=== PATIENT | female | born 1980 | race Caucasian/White ===

== ENCOUNTER 2025-02-25 18:09 | Inpatient (IN) | payer OTHER ==
[~2025-02-25] VITALS: Ht 167.6 cm; Wt 56.9 kg
[2025-02-25] MEDS ORDERED: ACETAMINOPHEN 325 MG TAB PO PRN (22:05)
[2025-02-25] MEDS ORDERED: IBUPROFEN 400 MG TAB PO PRN (22:05)
[2025-02-25] MEDS ORDERED: MAALOX 30 ML SUSP *UDC PO PRN (22:05)
[2025-02-25] MEDS ORDERED: MOM 30 ML SUSPENSION UDC PO PRN (22:05)
[2025-02-25] MEDS ORDERED: traZODone 50 MG TAB PO PRN (22:05)
[2025-02-25 22:27] VITALS: BP 119/72; TEMP 97.1; O2SAT 98
[2025-02-26 06:17] VITALS: BP 100/64; TEMP 97.1; O2SAT 98
[2025-02-26] MEDS ORDERED: SERT25TA21 PO (14:49)
[2025-02-26] MEDS ORDERED: HOME MED LIST COMPLETE! XX SCH (14:50)
[2025-02-26 14:55] VITALS: BP 123/76; TEMP 98.2; O2SAT 99
[2025-02-26] MEDS: buPROPion **XL** 150 MG TABLET PO SCH (15:47)
[2025-02-26] MEDS: risperiDONE 0.5 MG TAB PO ONE (15:48)
[2025-02-26 19:14] LABS: BASO # 0.0 10^3/uL (0.0-0.2); BASO % 0.3 % (0.0-1.0); EOS # 0.1 10^3/uL (0.0-0.5); EOS % 0.5 % (0.0-3.0); LYMPH # 3.4 10^3/uL (1.5-5.0); LYMPH % 29.0 % (24.0-44.0); MONO # 0.9 10^3/uL (0.0-0.8); MONO % 8.1 % (2.0-8.0); NEUTROPHILS # 7.2 10^3/uL (1.5-8.5); NEUTROPHILS % 61.8 % (36.0-66.0); PLATELET COUNT, AUTOMATED 441 10^3/uL (150-450)
[2025-02-26 19:37] LABS: CALCIUM LEVEL 9.0 MG/DL (8.5-10.1); CARBON DIOXIDE LEVEL 28 MMOL/L (20-31); CHLORIDE LEVEL 104 MMOL/L (98-107); CREATININE FOR GFR 0.59 MG/DL (0.55-1.30); GLOMERULAR FILTRATION RATE > 90.0 (>58); POTASSIUM SERUM 4.1 MMOL/L (3.5-5.1); SODIUM LEVEL 138 MMOL/L (136-145)
[2025-02-26] MEDS: risperiDONE 0.5 MG TAB PO SCH (20:04)
[2025-02-26] MEDS: traZODone 50 MG TAB PO SCH (20:04)
[2025-02-27 06:28] VITALS: BP 95/63; TEMP 96.3; O2SAT 99
[2025-02-27 15:21] VITALS: BP 127/73; TEMP 98; O2SAT 98
[2025-02-28 06:29] VITALS: BP 118/65; TEMP 97.4; O2SAT 99
[2025-02-28] MEDS ORDERED: RISP0.5T82 PO (10:19)
[2025-02-28] MEDS ORDERED: BUPR150T12 PO (10:19)
== END 2025-02-28 14:11 | disposition home or self-care (01) | DRG 751 ==
LOC: EDUNIT# 18:09 → M ED 18:09 → EDBD 18:09 → M ED INP 22:02 → M PSY 22:58
PROVIDERS: ADMIT Psychiatry & Neurology Neurology; ATTEND Psychiatry & Neurology Neurology
DX: F33.1 Major depressive disorder, recurrent, moderate (principal); R45.851 Suicidal ideations; F41.1 Generalized anxiety disorder; F41.0 Panic disorder [episodic paroxysmal anxiety]; F90.9 Attention-deficit hyperactivity disorder, unspecified type; F10.90 Alcohol use, unspecified, uncomplicated; F15.90 Other stimulant use, unspecified, uncomplicated; Z91.51 Personal history of suicidal behavior; Z79.899 Other long term (current) drug therapy